=== PATIENT | male | born 1995 | race Caucasian/White ===

== ENCOUNTER 2020-02-29 11:25 | Emergency (ER) | payer OTHER ==
[~2020-02-29] VITALS: Ht 188 cm; Wt 77.1 kg
[2020-02-29 12:23] LABS: ABSOLUTE BASOPHILS 0.1 thou/uL (0.0-0.2); ABSOLUTE EOSINOPHILS 0.3 thou/uL (0.0-0.7); ABSOLUTE LYMPHOCYTES 1.9 thou/uL (0.8-5.3); ABSOLUTE MONOCYTES 0.4 thou/uL (0.0-1.2); ABSOLUTE NEUTROPHILS 2.1 thou/uL (1.6-8.1); BASOPHILS 1.1 %; EOSINOPHILS 6.4 %; HEMATOCRIT 48.3 % (42.0-52.0); HEMOGLOBIN 16.2 gm/dL (14.0-18.0); LYMPHOCYTES 40.3 %; MCH 29.9 pg (26.0-34.0); MCHC 33.5 g/dL (28.0-37.0); MCV 89.5 fL (80.0-100.0); MONOCYTES 7.8 %; MPV 8.3 fl. (7.2-11.1); NUCLEATED RBCS 0 /100WBC; PLATELET COUNT* 186 thou/uL (150-400); POLYS 44.4 %; RDW-CV 12.5 % (10.5-14.5); WBC 4.7 thou/uL (4.0-11.0)
[2020-02-29 12:29] LABS: CALCIUM 9.1 mg/dL (8.5-10.1); CREATININE 1.1 mg/dL (0.6-1.3); POTASSIUM 4.3 mmol/L (3.5-5.1)
[2020-02-29 12:33] LABS: ALBUMIN 4.1 g/dL (3.4-5.0); TOTAL BILIRUBIN 0.6 mg/dL (<0.1-1.0); TOTAL PROTEIN 7.8 g/dL (6.4-8.2)
[2020-02-29 14:38] VITALS: BP 125/70
--- NOTE | 2020-02-29 16:35 | EKG ---
[place] [address] ELECTROCARDIOGRAM REPORT Name: MARKO FRANCISCO Room: [facility]#: [id number] Admission: 02/29/20 Attend Phys: Discharge: 02/29/20 Date of : [birth year] Date of Service: 02/29/20 1209 Report #: [id number] THIS REPORT FOR: //name// [facility] ED Test Date: 2020-02-29 Test Time: 12:09:40 Pat Name: MARKO FRANCISCO Department: Room: Gender: Photography Instructor: ID : [id number] Requested By: Sigifredo Finney Order Number: [id number] MD: Sanchez Grant Measurements Intervals [place] Rate: 58 P: RI: QRS: 93 QRSD: 101 T: 70 QT: 367 QTc: 361 Interpretive Statements Sinus rhythm Incomplete right bundle branch block Baseline wander in lead(s) V3,V4,V5,V6 No previous ECG available for comparison Electronically Signed On 02-29-2020 16:34:48 [facility] [facility] by Sanchez Grant [email or web address] <ELECTRONICALLY SIGNED> By: Sanchez Grant MD, [facility] 02/29/20 1634 1209 1209 Sanchez Grant MD, [facility] /EPI
== END 2020-02-29 14:39 | disposition home or self-care (01) ==
LOC: M.ERS 11:25
PROVIDERS: Emergency Medicine Emergency Medical Services
DX: R55 Syncope and collapse (principal); R11.10 Vomiting, unspecified; J02.9 Acute pharyngitis, unspecified; Z20.828 Contact with and (suspected) exposure to other viral communicable diseases